=== PATIENT | female | born 1960 | race Caucasian/White ===

== ENCOUNTER 2018-11-26 09:21 | Day surgery (SDC) | payer OTHER ==
[2018-11-26] MEDS ORDERED: FENTAnyl 50 MCG/ML VIAL (11:17)
[2018-11-26] MEDS ORDERED: MIDAZOLAM 1 MG/ML 2 ML INJ (11:17)
== END 2018-11-26 15:13 | disposition home or self-care (01) ==
LOC: GIL 09:21
DX: K64.8 Other hemorrhoids (principal); K21.9 Gastro-esophageal reflux disease without esophagitis; K44.9 Diaphragmatic hernia without obstruction or gangrene
CPT/HCPCS: 43239; 88305; 88312